=== PATIENT | male | born 1965 | race Caucasian/White ===

== ENCOUNTER 2021-05-26 05:20 | Emergency (ER) | payer MEDICAID ==
[~2021-05-26] VITALS: Ht 180.3 cm; Wt 61.8 kg
[~2021-05-26 05:20] MED LIST: ALBU18HF2 INH; INHA1SPA3 MC
[2021-05-26 05:32] VITALS: BP 113/69
== END 2021-05-26 07:36 | disposition left against medical advice (07) ==
LOC: ER 05:21
DX: J02.9 Acute pharyngitis, unspecified (principal); R05 Cough; R06.02 Shortness of breath; Z53.21 Procedure and treatment not carried out due to patient leaving prior to being seen by health care provider